=== PATIENT | male | born 1950 | race Caucasian/White ===

== ENCOUNTER 2020-08-07 08:15 | Inpatient (IN) | payer OTHER ==
[2020-08-07] MEDS ORDERED: SODIUM CHLORIDE 0.9% 500 ML INFUS.BAG IV ONE ×2 (08:26→11:03)
[2020-08-07 08:59] LABS: BASO % 2.3 % (0-2.0); EOS % 1.1 % (0-4.5); HEMOGLOBIN 15.3 GM/dl (11.7-16.9); LYMPH % 25.2 % (8-40); MCH 29.4 pg (25.7-33.7); MCHC 33.3 g/dl (32.0-35.9); MEAN PLT VOLUME 8.5 fl (7.5-11.1); MONO % 9.6 % (3.8-10.2); NEUT % 61.8 % (42.8-82.8); PLATELET COUNT 260 K/MM3 (134-434); RBC 5.22 M/mm3 (4.00-5.60); RDW 12.5 % (11.9-15.9); WHITE BLOOD COUNT 8.6 K/mm3 (4.0-10.8)
[2020-08-07 09:03] LABS: CALCIUM OXALATE CRYSTALS RARE /hpf (NONE SEEN)
[2020-08-07 09:15] LABS: ALBUMIN 3.8 g/dl (3.4-5.0); BILIRUBIN,TOTAL 1.1 mg/dl (0.2-1); CALCIUM 9.1 mg/dl (8.5-10); CREATININE 1.5 mg/dl (0.55-1.3); TOT PROT 6.8 g/dl (6.4-8.2)
[2020-08-07] MEDS ORDERED: EPHEDRINE SULFATE/0.9% NACL/PF 50 MG/10 ML SYRINGE NR ONE (14:49)
[2020-08-07] MEDS ORDERED: PROPOFOL 20 ML ONE ×2 (14:49)
[2020-08-07] MEDS ORDERED: LIDOCAINE HCL/PF 2% SDV 5ML VIAL ONE (14:49)
[2020-08-07] MEDS ORDERED: DEXAMETHASONE SOD PHOSPHATE 4 MG/1 ML VIAL ONE (14:49)
[2020-08-07 14:55] VITALS: BMI 35.5
[2020-08-07] MEDS ORDERED: MIDAZOLAM HCL 2 MG/2 ML SINGLE DOSE VIAL ONE (15:25)
[2020-08-07] MEDS ORDERED: ACETAMINOPHEN INJECTION 100 ML IVPB ONE (15:32)
[2020-08-07] MEDS ORDERED: ceFAZolin SODIUM 1 GM VIAL ONE (15:36)
[2020-08-07] MEDS ORDERED: ceFAZolin SODIUM 1 GM VIAL IVPB ONE (15:40)
[2020-08-07] MEDS ORDERED: oxyCODONE HCL 5 MG TABLET PO PRN (15:58)
[2020-08-07] MEDS ORDERED: DEXTROSE 5%-0.45% SALINE 1,000 ML IV SCH (16:00)
[2020-08-07] MEDS ORDERED: ONDANSETRON 4 MG/2 ML VIAL IVPUSH PRN (16:33)
[2020-08-07] MEDS ORDERED: LACTATED RINGERS SOLUTION 1,000 ML IV SCH (16:45)
[2020-08-07] MEDS ORDERED: ACETAMINOPHEN 325 MG TABLET (FP) PO PRN (20:33)
[2020-08-08] MEDS ORDERED: ALPRAZolam 0.25 MG TABLET PO PRN (00:22)
[2020-08-08 08:39] LABS: BASO % 0.2 % (0-2.0); EOS % 0.2 % (0-4.5); HEMATOCRIT 39.9 % (35.4-49); HEMOGLOBIN 13.7 GM/dL (11.7-16.9); LYMPH % 19.1 % (8-40); MCH 30.4 pg (25.7-33.7); MCHC 34.4 g/dl (32.0-35.9); MEAN CELL VOLUME 88.4 fl (80-96); MEAN PLT VOLUME 8.8 fl (7.5-11.1); MONO % 9.4 % (3.8-10.2); NEUT % 71.1 % (42.8-82.8); PLATELET COUNT 216 K/MM3 (134-434); RBC 4.51 M/mm3 (4.00-5.60); RDW 13.1 % (11.9-15.9); WHITE BLOOD COUNT 9.1 K/mm3 (4.0-10.0)
[2020-08-08 09:12] LABS: ALBUMIN 3.1 g/dl (3.4-5.0)
[2020-08-08 09:13] LABS: BLOOD UREA NITROGEN 14.4 mg/dL (7-18)
[2020-08-08 09:16] LABS: CREATININE 1.1 mg/dL (0.55-1.3)
[2020-08-08 09:17] LABS: BILIRUBIN,TOTAL 0.9 mg/dL (0.2-1); TOT PROT 6.1 g/dl (6.4-8.2)
[2020-08-08] MEDS ORDERED: oxyCODONE HCL 5 MG TABLET PO PRN (09:22)
[2020-08-08] MEDS ORDERED: CEFUROXIME AXETIL 500 MG TABLET PO SCH (11:15)
[2020-08-08 12:05] VITALS: BP 134/78; PULSE 75; TEMP 98.2
== END 2020-08-08 13:15 | disposition home or self-care (01) | DRG 661 ==
LOC: FER 08:15 → J6S 14:40
PROVIDERS: ADMIT Urology; ATTEND Nurse Practitioner Family
PROC: BT1FZZZ Fluoroscopy of Left Kidney, Ureter and Bladder (ICD-10-PCS; 2020-08-07)
PROC: 0TJB8ZZ Inspection of Bladder, Via Natural or Artificial Opening Endoscopic (ICD-10-PCS; principal; 2020-08-07 14:59)
PROC: 0T778DZ Dilation of Left Ureter with Intraluminal Device, Via Natural or Artificial Opening Endoscopic (ICD-10-PCS; 2020-08-07 14:59)
DX: N13.2 Hydronephrosis with renal and ureteral calculous obstruction (principal); N17.9 Acute kidney failure, unspecified; E66.9 Obesity, unspecified; Z68.35 Body mass index [BMI] 35.0-35.9, adult; F41.9 Anxiety disorder, unspecified
CPT/HCPCS: 36415; 74176-TC; 80053; 81003; 81015; 83735; 84100; 85025; 87086; 93005; 94760; 99285-25; C9803; J0131; U0003; U0005

== ENCOUNTER 2022-08-24 10:06 | Emergency (ER) | payer OTHER ==
[2022-08-24 10:37] VITALS: BP 141/109; PULSE 82; RESP 18; TEMP 98.4; BMI 34.9
[2022-08-24 11:07] LABS: INR 1.14 (0.83-1.09); PROTHROMBIN TIME (PATIENT) 13.2 SEC (9.7-13.0)
[2022-08-24 11:15] LABS: HEMATOCRIT 45.9 % (35.4-49); HEMOGLOBIN 15.5 G/dL (11.7-16.9); MCH 29.8 pg (25.7-33.7); MCHC 33.7 g/dl (32.0-35.9); MEAN CELL VOLUME 88.3 fl (80-96); MEAN PLT VOLUME 8.6 fl (7.5-11.1); PLATELET COUNT 219.3 10^3/uL (134-434); RDW 14.3 % (11.9-15.9); WHITE BLOOD COUNT 7.4 10^3/uL (4.0-10.8)
[2022-08-24 11:18] LABS: BILIRUBIN,TOTAL 0.5 mg/dl (0.2-1); BLOOD UREA NITROGEN 24.5 mg/dl (7-18); CALCIUM 9.2 mg/dl (8.5-10.1); POTASSIUM 4.1 mmol/L (3.5-5.1); SGOT/AST 17.6 U/L (15-37); SGPT/ALT 21.3 U/L (7-52); TOT PROT 6.5 g/dl (6.4-8.2)
[2022-08-24 11:20] LABS: PLATELET ESTIMATE ADEQUATE
== END 2022-08-24 14:25 | disposition home or self-care (01) ==
LOC: FER 10:06
DX: R00.8 Other abnormalities of heart beat (principal)
CPT/HCPCS: 36415; 71045-TC-FY; 80053; 81003; 84484; 85027; 85610; 93005; 93010; 99285-25